=== PATIENT | male | born 1995 | race Hispanic/Latino ===

== ENCOUNTER 2018-01-09 19:33 | Emergency (ER) | payer MEDICAID, OTHER ==
[2018-01-09] MEDS ORDERED: IPRATROPIUM/ALBUTEROL SULFATE 3 ML SOLUTION IH ONE (19:51)
[2018-01-09] MEDS ORDERED: DEXAMETHASONE SOD PHOSPHATE 10MG/ML 1ML VIAL ONE (20:16)
== END 2018-01-09 20:30 | disposition home or self-care (01) ==
LOC: EDH 19:33
DX: J20.9 Acute bronchitis, unspecified (principal); J18.9 Pneumonia, unspecified organism
CPT/HCPCS: 94640; 96372; 99283; J1100

== ENCOUNTER 2019-10-11 | Emergency (ER) | payer OTHER ==
[2019-10-11 00:41] LABS: BILIRUBIN,URINE Negative (NEGATIVE); COLOR,URINE Yellow (YELLOW); GLUCOSE, URINE (UA) Negative (NEGATIVE); KETONES,URINE Trace mg/dL (NEGATIVE); LEUKOCYTE ESTERASE ,URINE Large (NEGATIVE); NITRATE,URINE Negative (NEGATIVE); OCCULT BLOOD,URINE Large (NEGATIVE); PH,URINE 5.5 (5.0-8.0); PROTEIN,URINE POS 1+ mg/dL (NEGATIVE)
[2019-10-11 00:53] LABS: APPEARANCE,URINE CLOUDY (CLEAR)
[2019-10-11 01:03] LABS: BACTERIA,URINE Few /HPF (None Seen); RBC,URINE 26-50 /HPF (0-1); WBC,URINE >100 /HPF (0-1)
[2019-10-11 01:04] LABS: SQUAMOUS EPITHELIAL CELL,UR 0-2 /HPF (0-2)
[2019-10-11] MEDS ORDERED: CEFTRIAXONE SODIUM 1 GM ONE (01:06)
[2019-10-11] MEDS ORDERED: AZITHROMYCIN 250 MG TABLET PO ONE (01:06)
[2019-10-11] MEDS ORDERED: PHENAZOPYRIDINE HCL 200 MG TABLET ONE (01:07)
== END 2019-10-11 02:07 | disposition home or self-care (01) ==
LOC: EDH
DX: N30.00 Acute cystitis without hematuria (principal)
CPT/HCPCS: 81001; 87486; 87797; 96372; 99284; J0696